=== PATIENT | male | born 1995 | race African-American/Black ===

== ENCOUNTER 2017-05-08 17:48 | Emergency (ER) | payer SELFPAY ==
[2017-05-08] MEDS ORDERED: Dexamethasone 4 MG TAB ONE (19:31)
== END 2017-05-08 19:43 | disposition home or self-care (01) ==
LOC: ERS 17:48
DX: J02.0 Streptococcal pharyngitis (principal)
CPT/HCPCS: 87081; 87430; 99283; J8540